=== PATIENT | female | born 1945 | race Caucasian/White ===

== ENCOUNTER 2022-05-23 12:34 | Emergency (ER) | payer MEDICARE ==
[~2022-05-23] VITALS: Ht 162.6 cm; Wt 59.0 kg
[~2022-05-23 12:34] MED LIST: ANAG.5 PO; ESOM20CA31 PO
[2022-05-23 14:12] LABS: BASOPHILS % (AUTO) 0.2 % (0.0-5.0); EOSINOPHILS % (AUTO) 0.2 % (0.0-8.0); HEMATOCRIT 30.3 % (36-48); LYMPHOCYTES % (AUTO) 10.7 % (21.0-51.0); MEAN CORPUSCULAR HEMOGLOBIN 33.8 pg (27.0-33.0); MEAN CORPUSCULAR VOLUME 99.3 fL (79-99); MONOCYTES % (AUTO) 1.8 % (3.0-13.0); NEUTROPHILS % (AUTO) 86.7 % (40.0-77.0); PLATELET COUNT (AUTO) 170 K/uL (130-400); RED BLOOD CELL COUNT(AUTO) 3.05 MIL/uL (4.00-5.50); RED CELL DISTRIBUTION WIDTH 13.6 % (11.0-15.5); WHITE BLOOD COUNT (AUTO) 4.5 K/uL (4.8-10.8)
[2022-05-23 14:30] LABS: POTASSIUM 3.7 mmol/L (3.5-5.1)
[2022-05-23 14:38] LABS: ALBUMIN 3.6 g/dL (3.5-5.0); TOTAL PROTEIN, SERUM 6.5 g/dL (6.0-8.3)
[2022-05-23] MEDS ORDERED: IOHEXOL 350 MG/ML 100ML INFUS..BTL IV ONE (15:49)
[2022-05-23 17:06] VITALS: BP 129/54
== END 2022-05-23 17:20 | disposition home or self-care (01) ==
LOC: EDH 12:34
DX: J84.10 Pulmonary fibrosis, unspecified (principal); R79.89 Other specified abnormal findings of blood chemistry; Z85.9 Personal history of malignant neoplasm, unspecified; Z20.822 Contact with and (suspected) exposure to COVID-19
CPT/HCPCS: 99285; 84484; 80053; 83880; 85025; 85378; 87804 ×2; 36415; 87635; 71270; 93005; C9803; Q9967

== ENCOUNTER → 2022-06-15 | Outpatient (CLI) | payer MEDICARE | END | disposition home or self-care (01) | LOC: RAH 13:26 | PROVIDERS: ATTEND Internal Medicine Hematology & Oncology | DX: I08.3 Combined rheumatic disorders of mitral, aortic and tricuspid valves (principal); I31.39 Other pericardial effusion (noninflammatory); C90.00 Multiple myeloma not having achieved remission; D80.1 Nonfamilial hypogammaglobulinemia; K12.2 Cellulitis and abscess of mouth | CPT/HCPCS: 93306 ==